=== PATIENT | male | born 1970 | race Caucasian/White ===

== ENCOUNTER 2020-05-09 10:00 | Outpatient (RCR) | payer BC, SELFPAY ==
[2020-05-09] MEDS: COVID-19 VACC, MRNA(PFIZER)/PF 30 MCG/0.3 ML SYRINGE IM (07:05)
[2020-05-30] MEDS: COVID-19 VACC, MRNA(PFIZER)/PF 30 MCG/0.3 ML SYRINGE IM (07:17)
== END 2020-05-09 23:59 ==
LOC: IMMUN 10:00
PROVIDERS: Visit Provider Family Medicine
DX: Z23 Encounter for immunization (principal)
CPT/HCPCS: 0001A; 0002A; 91300

== ENCOUNTER 2021-04-24 08:48 | Outpatient (CLI) | payer BC, SELFPAY ==
--- NOTE | 2021-04-24 09:02 | BI_ITS ---
MAMMOGRAPHY - BILATERAL DIAGNOSTIC REASON FOR EXAM: Male, 50 years old. Palpable right breast lump. PERTINENT HISTORY: Paternal grandfather. TECHNIQUE: Digital bilateral breast pritesh (3D mammographic acquisition) in the CC and MLO projections. 2-D mediolateral oblique (MLO) and craniocaudad (CC) views of both breasts were obtained. CAD: Full Field Digital Mammography with Computer Added Detection was performed. COMPARISON: None. Baseline examination. FINDINGS: Breast Composition: The breasts are almost entirely fatty. There are no dominant masses or suspicious calcifications. No other significant abnormalities are identified. BI/DIAG MAMM W/CAD, BILAT IMPRESSION: Negative diagnostic mammogram. With the patient''s history of a palpable lump in the right breast, correlation with ultrasound is recommended. ASSESSMENT CATEGORY: BIRADS Category 0: Incomplete. Need additional imaging evaluation. A letter regarding these results will be sent to the patient by the facility within 30 days. Approximately 10% of breast cancers are not detected by mammography. A normal mammogram should not delay biopsy of a clinically suspicious abnormality. Electronically Signed: Dov Heard MD at 11:11 EST ,
--- NOTE | 2021-04-24 09:03 | US_ITS ---
STUDY: ULTRASOUND BREAST - RIGHT REASON FOR EXAM: Male, 50 years old. Palpable lump in the right breast. History of multiple lipomas throughout the body. TECHNIQUE: Axial and longitudinal images of the RIGHT breast were performed with a high resolution ultrasound transducer. # OF IMAGES: 21 COMPARISON: Comparison is made with prior mammogram done earlier today. FINDINGS: RIGHT Breast: The upper inner aspect of the right breast was examined by ultrasound. There is a well-defined 1.4 cm x 1.5 cm x 0.6 cm isoechoic to slightly hyperechoic nodule at the 2 o''clock position the breast at 9 cm from nipple. This most likely represents a lipoma. Incidental finding is made of similar appearing nodules adjacent to the sternum. The larger measures 2.4 cm x 2.7 cm x 0.7 cm US/Breast Complete Unilateral IMPRESSION: The palpable abnormality most likely corresponds to a lipoma. Incidental finding is made of 2 similar appearing nodules adjacent to the stent. ASSESSMENT CATEGORY: BIRADS Category 2: Benign. A letter regarding these results will be sent to the patient by the facility within 30 days. Electronically Signed: Dov Heard MD at 12:58 EST ,
== END 2021-04-24 23:59 | disposition home or self-care (01) ==
PROVIDERS: Referring Provider Nurse Practitioner Family; Visit Provider Nurse Practitioner Family
DX: N63.10 Unspecified lump in the right breast, unspecified quadrant (principal); N63.20 Unspecified lump in the left breast, unspecified quadrant; Z80.3 Family history of malignant neoplasm of breast
CPT/HCPCS: 76641; 77062; 77066; G0279